=== PATIENT | female | born 1995 | race Caucasian/White ===

== ENCOUNTER 2017-07-04 13:01 | Emergency (ER) | payer BC, OTHER ==
[2017-07-04 13:23] VITALS: BP 109/59
--- NOTE | 2017-07-04 13:38 | UC ---
Skin Complaint HPI - HPI Summary HPI Summary: C/O crusting lesion on the chin and lips. H/O cold sores - History of Current Complaint Chief Complaint: UCSkin Time Seen by Provider: 07/04/17 13:31 Stated Complaint: SKIN COMPLAINT Hx Obtained From: Patient Hx Last Menstrual Period: 07/02/17 ?: No Onset/Duration: Sudden Onset, Lasting Days - 4 Onset Severity: Mild Current Severity: Moderate Pain Intensity: 2 Location: Discrete - Left side of the mouth and the chin. Character: Pruritus Aggravating Factor(s): Nothing Alleviating Factor(s): Nothing Associated Signs & Symptoms: Positive: Cough, Hoarseness, Rash - Allergy/Home Medications Allergies/Adverse Reactions: Allergies Allergy/AdvReac Type Severity Reaction Status Date / Time peanut Allergy Anaphylatic Verified 07/04/17 13:19 Shock Tree Nuts Allergy Anaphylatic Verified 07/04/17 13:19 Shock Home Medications: Home Medications EPINEPHrine [Epipen 2-Adam] 0.3 mg IM SEE INSTRUCTIONS PRN 07/04/17 [History Confirmed 07/04/17] Review of Systems Skin: Rash Is Patient Immunocompromised?: No All Other Systems Reviewed And Are Negative: Yes PMH/Surg Hx/FS Hx/Imm Hx Previously Healthy: Yes - Surgical History Surgical History: None - Family History Known Family History: Positive: Diabetes - Social History Occupation: Student Lives: Dormitory/Roommates Alcohol Use: Weekly Substance Use Type: None Smoking Status (MU): Never Smoked Tobacco Physical Exam Triage Information Reviewed: Yes Appearance: No Pain Distress, Well-Nourished, Ill-Appearing Vital Signs: Initial Vital Signs Temp 98.4 F 07/04/17 13:17 Pulse 56 07/04/17 13:17 Resp 16 07/04/17 13:17 BP 109/59 07/04/17 13:17 Pulse Ox 100 07/04/17 13:17 Vital Signs Reviewed: Yes Eye Exam: Normal ENT Exam: Normal Neck exam: Normal Respiratory Exam: Normal Cardiovascular Exam: Normal Musculoskeletal Exam: Normal Neurological Exam: Normal Psychological Exam: Normal Skin: Positive: rashes - crusted ulcers on the left lower lip and chin. Course/Dx - Differential Diagnoses - Skin Complaint Differential Diagnoses: Abscess, Cellulitis, Impetigo - Diagnoses Provider Diagnoses: Herpes Simplex. Discharge - Sign-Out/Discharge Documenting (check all that apply): Discharge/Admit/Transfer - Discharge Plan Condition: Stable Disposition: HOME Prescriptions: ValACYclovir (*) [Valtrex 500 mg (*)] 500 mg PO BID #10 tab Patient Education Materials: Oral Herpes Simplex Virus Infections (ED), Valacyclovir (By mouth) Referrals: Non Staff,Doctor [Primary Care Provider] - - Billing Disposition and Condition Condition: STABLE Disposition: HOME
== END 2017-07-04 13:56 | disposition home or self-care (01) ==
LOC: UCCORT 13:01
DX: B00.9 Herpesviral infection, unspecified (principal)
CPT/HCPCS: 99212; G0463

== ENCOUNTER 2017-07-07 16:33 | Emergency (ER) | payer BC ==
[2017-07-07 17:22] VITALS: BP 104/65
--- NOTE | 2017-07-07 18:08 | UC ---
Skin Complaint HPI - HPI Summary HPI Summary: Pt presents with c/o of worsening skin sore on left outer lower lip and chin. Pt was diagnosedw tih cold sore and has been applying hydorogen peroxide to affected area to "dry out skin" - History of Current Complaint Hx Obtained From: Patient Hx Last Menstrual Period: 07/02/17 ?: No Onset/Duration: Gradual Onset, Lasting Days, Worse Since - onset Skin Exposure Onset/Duration: Days Ago Timing: Constant Onset Severity: Mild Current Severity: Moderate Pain Intensity: 7 Location: Discrete, Face Character: Redness, Raised Aggravating Factor(s): Touch Alleviating Factor(s): Nothing Associated Signs & Symptoms: Positive: Tenderness <Katie Angelo NP - Last Filed: 07/07/17 18:51> <Desirae Andujar - Last Filed: 07/07/17 20:19> - History of Current Complaint Chief Complaint: UCSkin Time Seen by Provider: 07/07/17 17:56 Stated Complaint: ORAL SKIN COMPLAINT - Allergy/Home Medications Allergies/Adverse Reactions: Allergies Allergy/AdvReac Type Severity Reaction Status Date / Time peanut Allergy Anaphylatic Verified 07/04/17 13:19 Shock Tree Nuts Allergy Anaphylatic Verified 07/04/17 13:19 Shock Home Medications: Home Medications Ibuprofen [Advil] 200 mg PO Q8H 07/07/17 [History Confirmed 07/07/17] Review of Systems Constitutional: Negative Skin: Other - open sore, dry, crusted skin Eyes: Negative ENT: Negative Respiratory: Negative Cardiovascular: Negative Gastrointestinal: Negative Genitourinary: Negative Motor: Negative Neurovascular: Negative Musculoskeletal: Negative Neurological: Negative Psychological: Negative Is Patient Immunocompromised?: No All Other Systems Reviewed And Are Negative: Yes <Katie Angelo NP - Last Filed: 07/07/17 18:51> PMH/Surg Hx/FS Hx/Imm Hx Previously Healthy: Yes - Surgical History Surgical History: None - Family History Known Family History: Positive: Diabetes - Social History Occupation: Student Lives: Dormitory/Roommates Alcohol Use: Weekly Substance Use Type: None Smoking Status (MU): Never Smoked Tobacco Have You Smoked in the Last Year: No <Katie Angelo NP - Last Filed: 07/07/17 18:51> Physical Exam Triage Information Reviewed: Yes Appearance: Well-Appearing Vital Signs: Initial Vital Signs Temp 98.1 F 07/07/17 17:17 Pulse 86 07/07/17 17:17 Resp 14 07/07/17 17:17 BP 104/65 07/07/17 17:17 Pulse Ox 99 07/07/17 17:17 Vital Signs Reviewed: Yes Eye Exam: Normal ENT Exam: Normal Dental Exam: Normal Neck exam: Normal Respiratory Exam: Normal Cardiovascular Exam: Normal Musculoskeletal Exam: Normal Neurological Exam: Normal Psychological Exam: Normal Skin Exam: Other - quarter size dry, crusted skin at left lower lip and right side of chin with raised crusted skin with peeling skin, tender to touch, <Katie Angelo NP - Last Filed: 07/07/17 18:51> Vital Signs: Initial Vital Signs Temp 98.1 F 07/07/17 17:17 Pulse 86 07/07/17 17:17 Resp 14 07/07/17 17:17 BP 104/65 07/07/17 17:17 Pulse Ox 99 07/07/17 17:17 <Desirae Andujar - Last Filed: 07/07/17 20:19> Course/Dx - Differential Diagnoses - Skin Complaint Differential Diagnoses: Cellulitis, Impetigo - Diagnoses Provider Diagnoses: cellulitis <Katie Angelo NP - Last Filed: 07/07/17 18:51> Discharge - Sign-Out/Discharge Documenting (check all that apply): Discharge/Admit/Transfer - Billing Disposition and Condition Condition: STABLE Disposition: HOME <Katie Angelo NP - Last Filed: 07/07/17 18:51> - Billing Disposition and Condition Condition: STABLE Disposition: HOME <Desirae Andujar - Last Filed: 07/07/17 20:19> - Discharge Plan Condition: Stable Disposition: HOME Prescriptions: DOXYcycline CAP(*) [DOXYcycline 100MG CAP(*)] 100 mg PO Q12H #14 cap Mupirocin 2% OINT* [Bactroban 2 % Oint*] 1 applic TOPICAL BID #1 tube Patient Education Materials: Cellulitis (ED) Referrals: [facility] [place] [facility] [Outside] Non Staff,Doctor [Primary Care Provider] - Attestation Statement User Type: Provider - I was available for consult. This patient was seen by the MICHELLE. The patient was not presented to, seen by, or examined by me. -Ladi <Desirae Andujar - Last Filed: 07/07/17 20:19>
== END 2017-07-07 18:27 | disposition home or self-care (01) ==
LOC: UCCORT 16:33
DX: K13.0 Diseases of lips (principal); L01.00 Impetigo, unspecified
CPT/HCPCS: 99212; G0463